=== PATIENT | male | born 1990 | race Caucasian/White ===

== ENCOUNTER 2020-04-14 12:47 | Outpatient (CLI) | payer OTHER, SELFPAY ==
--- NOTE | ~2020-04-14 | CT_ITS ---
EXAMINATION: CT abdomen pelvis wo con DATE: 04/14/2020 13:12 INDICATION: Flank pain and painful urination TECHNIQUE: Computed tomography (CT) of the abdomen and pelvis was performed without intravenous contr ast. The dose-length product (DLP) was 283.76 mGy-cm. Automated exposure control and iterative recons truction technique were employed. COMPARISON: 05/23/2007 FINDINGS: The lung bases are clear. The heart size is normal. The liver, spleen, pancreas, gallbladde r, and adrenal glands are normal. The kidneys are unremarkable. No stones are identified in the kidne ys, ureters, or bladder. There is no hydronephrosis or hydroureter. No pathologically enlarged abdomi nal or pelvic lymph nodes are identified. There is no free intraperitoneal gas or evidence of bowel o bstruction. The appendix is normal. IMPRESSION: 1. No CT correlate for the patient's symptoms. Reviewed, dictated and finalized at location A. [facility]
== END 2020-04-14 12:48 | disposition home or self-care (01) ==
LOC: CHSIMG 12:49
PROVIDERS: PCP Family Medicine; Visit Provider Physician Assistant
DX: R10.9 Unspecified abdominal pain (principal)
CPT/HCPCS: 74176

== ENCOUNTER 2020-06-21 03:07 | Emergency (ER) | payer OTHER, SELFPAY ==
[2020-06-21 03:36] VITALS: BP 114/81; PULSE 85; RESP 20; TEMP 36.8; O2SAT 98
[2020-06-21] MEDS: ONDANSETRON INJ 4 MG/2 ML VIAL IV PUSH (03:50)
[2020-06-21] MEDS: SODIUM CHLORIDE 0.9% IV 1,000 ML 999 ML IV CONT (03:51)
[2020-06-21 03:58] LABS: Basophils Absolute Auto 0.03 K/mm3 (0.00-0.10); Basophils Percent Auto 0.3 % (0.0-1.0); Eosinophils Absolute Auto 0.09 K/mm3 (0.02-0.50); Eosinophils Percent Auto 0.9 % (1.0-6.0); Hematocrit 49.6 % (40.0-54.0); Hemoglobin 16.4 g/dL (14.0-18.0); Immature Granulocyte Absolute 0.02 K/mm3 (0.00-0.00); Immature Granulocyte Percent A 0.2 % (0.0-0.0); Lymphocytes Absolute Auto 0.28 K/mm3 (1.10-4.50); Lymphocytes Percent Auto 2.7 % (18.0-42.0); Mean Corpuscular HGB Conc 33.1 g/dL (32.0-36.0); Mean Corpuscular Hemoglobin 30.7 pg (27.0-31.0); Mean Corpuscular Volume 92.7 fL (78.0-102.0); Mean Platelet Volume 9.5 fl (8.7-11.0); Monocytes Absolute Auto 0.74 K/mm3 (0.10-0.90); Monocytes Percent Auto 7.2 % (2.0-11.0); Neutrophils Absolute Auto 9.1 K/mm3 (1.7-7.2); Neutrophils Percent Auto 88.7 % (50.0-70.0); Platelet Count Result 241 K/mm3 (150-420); Red Blood Count 5.35 M/mm3 (4.70-6.10); Red Cell Distribution Width 12.2 % (11.6-14.4); White Blood Count 10.2 K/mm3 (4.8-10.8)
[2020-06-21 04:09] LABS: Alanine Aminotransferase 32 U/L (16-63); Albumin Level 4.6 g/dL (3.4-5.0); Alkaline Phosphatase 87 U/L (46-116); Anion Gap 13 mmol/L (8-16); Aspartate Amino Transferase 16 U/L (15-37); Bilirubin,Total 0.8 mg/dL (0.00-1.00); Blood Urea Nitrogen 25 mg/dL (7-18); Calcium 9.5 mg/dL (8.5-10.1); Carbon Dioxide 26 mmol/L (21-32); Chloride 102 mmol/L (98-108); Estimated CRCL calculation 82 ml/min; Estimated Glomerular Filt Rate > 60; Glucose 134 mg/dL (70-99); Osmolality Calculated 298 mOsm/kg (285-295); Potassium 3.6 mmol/L (3.5-5.1); Sodium 141 mmol/L (136-145); Total Protein 8.5 g/dL (6.4-8.2)
--- NOTE | 2020-06-21 04:14 | ED.NAVMDI ---
HPI - Nausea/Vomiting/Diarrhea General Chief complaint: Nausea/Vomiting/Diarrhea Stated complaint: Vomiting and Diarrhea Source: patient and family Mode of arrival: ambulatory Limitations: no limitations History of Present Illness HPI Narrative: this is a 30-year-old male presents from home with his mother after earlier this this evening he started developing crampy abdominal pain with nausea vomiting and loose watery stools unknown cause but his father have similar episode a few days prior is having crampy abdominal pain no fever chills no chest pain no palpitations. MD elicited complaint: nausea, vomiting, diarrhea and abdominal pain Onset (ago): hour(s) Description of vomiting: food contents Description of diarrhea: semi-solid Associated nausea: Yes Associated abdominal pain: Yes Location of pain: other ( crampy abdominal pain) Pain consistency: intermittent Related Data Home Medications Medication Instructions Recorded Confirmed methimazole 2.5 mg PO DAILY 06/21/20 06/21/20 omeprazole 40 mg PO DAILY 06/21/20 06/21/20 propranolol 120 mg PO BID 06/21/20 06/21/20 Allergies Allergy/AdvReac Type Severity Reaction Status Date / Time amitriptyline Allergy Unknown Verified 06/21/20 03:36 Review of Systems Review of Systems: All systems reviewed & are unremarkable except as noted in HPI and below PMFSH Past Medical History Medical History Hyperthyroidism Exam Const: General: no acute distress and alert Orientation/consciousness: patient oriented x3 HENMT: Head: normal to inspection Eyes: Pupils: Equal, round and reactive pupils present EOM: EOMs intact bilaterally Direct Ophthalmoscopy: no photophobia Chest: Chest palpation & inspection: normal inspection of the chest Resp: Effort & Inspection: normal respiratory effort Auscultation: clear to auscultation bilaterally Cardio: Rhythm: regular rhythm GI: GI Palp: Yes Soft to palpation Back/Spine/Pelvis: Back: no CVA tenderness Skin: General skin exam: normal color Rashes: no rashes Neuro: General: patient oriented x3, moves all extremities and no meningeal signs Extrem: General: normal to inspection and no pedal edema Psych: Appearance: grossly normal Mental Status: mental status grossly normal Affect: normal affect Thought content: Yes Normal thought content present Course Course Emergency Course: nausea and vomiting had eased up after he received IV Zofran and was given IV fluids patient is more comfortable, labs reviewed with patient and his mother. Vital Signs Vital signs: Vital Signs Temperature 36.8 C 06/21/20 03:36 Pulse Rate 85 06/21/20 03:36 Respiratory Rate 20 06/21/20 03:36 Blood Pressure 114/81 06/21/20 03:36 Pulse Oximetry 98 06/21/20 03:36 Temperature 36.8 C 06/21/20 03:36 Pulse Rate 85 06/21/20 03:36 Respiratory Rate 20 06/21/20 03:36 Blood Pressure 114/81 06/21/20 03:36 Pulse Oximetry 98 06/21/20 03:36 MDM - Nausea/Vomiting/Diarrhea Lab Data Result diagrams: 06/21/20 03:50 06/21/20 03:50 Labs: Lab Results 06/21/20 06/21/20 Range/Units 03:50 03:50 WBC 10.2 (4.8-10.8) K/mm3 RBC 5.35 (4.70-6.10) M/mm3 Hgb 16.4 (14.0-18.0) g/dL Hct 49.6 (40.0-54.0) % MCV 92.7 (78.0-102.0) fL MCH 30.7 (27.0-31.0) pg MCHC 33.1 (32.0-36.0) g/dL RDW 12.2 (11.6-14.4) % Plt Count 241 (150-420) K/mm3 MPV 9.5 (8.7-11.0) fl Immature Gran % (Auto) 0.2 H (0.0-0.0) % Neut % (Auto) 88.7 H (50.0-70.0) % Lymph % (Auto) 2.7 L (18.0-42.0) % [place] % (Auto) 7.2 (2.0-11.0) % Eos % (Auto) 0.9 L (1.0-6.0) % Baso % (Auto) 0.3 (0.0-1.0) % Lymph # (Auto) 0.28 L (1.10-4.50) K/mm3 [place] # (Auto) 0.74 (0.10-0.90) K/mm3 Eos # (Auto) 0.09 (0.02-0.50) K/mm3 Baso # (Auto) 0.03 (0.00-0.10) K/mm3 Abs Immat Gran (auto) 0.02 H (0.00-0.00) K/mm3 Absolute Neut
[2020-06-21 04:29] VITALS: BP 125/84; PULSE 81; RESP 18; TEMP 36.6; O2SAT 98
== END 2020-06-21 04:34 | disposition home or self-care (01) ==
PROVIDERS: Emergency Provider Emergency Medicine; PCP Family Medicine
DX: K52.9 Noninfective gastroenteritis and colitis, unspecified (principal)
CPT/HCPCS: 36415; 80053; 85025; 96361; 96374; 99283; 99284; J2405; J7030

== ENCOUNTER 2020-09-13 13:44 | Outpatient (CLI) | payer OTHER, SELFPAY ==
--- NOTE | ~2020-09-13 | US_ITS ---
EXAMINATION: US thyroid DATE: 09/13/2020 14:04 INDICATION: Goiter. TECHNIQUE: Multiple ultrasound images of the thyroid were obtained. COMPARISON: Ultrasound 09/04/2016, 09/09/15 FINDINGS: The right thyroid lobe measures 5.5 x 1.6 x 1.6 cm. The left thyroid lobe measures 6.5 x 1.8 x 1.8 c m. In the right thyroid lobe, there is a 12 mm solid, hypoechoic, wgnsy-kuwa-rtok nodule with ill-de fined margin without echogenic foci (TI-RADS TR4). In the thyroid isthmus, there is an 8 mm solid, hy poechoic, jyhji-liqr-zmkk nodule with ill-defined margin without echogenic foci (TR4). In the left th yroid lobe, there is an 8 mm solid, hypoechoic, gxvso-ofeb-eoxr nodule with ill-defined margin withou t echogenic foci (TR4). IMPRESSION: 1. Thyroid nodules, stable from 09/09/2015, likely benign. No follow-up is needed. Reviewed, dictated and finalized at location B. IMPRESSION: 1. Thyroid nodules, stable from 09/09/2015, likely benign. No follow-up is neede ac
== END 2020-09-13 13:45 | disposition home or self-care (01) ==
LOC: CHSIMG 13:45
PROVIDERS: PCP Physician Assistant
DX: E04.2 Nontoxic multinodular goiter (principal)
CPT/HCPCS: 76536

== ENCOUNTER 2021-07-08 12:42 | Outpatient (CLI) | payer OTHER, SELFPAY ==
--- NOTE | ~2021-07-08 | XR_ITS ---
XR lumbar spine 2-3V DATE: 07/08/2021 12:59 INDICATION: Chronic back pain, radiating to right lower extremity, worse the past week. TECHNIQUE: AP, lateral, coned lateral lumbosacral views COMPARISON: 04/09/2020 lumbar spine FINDINGS: There is mild levoscoliosis of the thoracolumbar spine. Normal alignment of the lumbar spine. No fracture or bone destruction or spondylolisthesis. The included lower thoracic and lumbar pedicles are intact. Lumbosacral and lumbar interspaces are relatively well preserved. The sacroiliac joints are normal. IMPRESSION: Mild scoliosis; otherwise no significant abnormality Reviewed, dictated and finalized at location A.
== END 2021-07-08 12:43 | disposition home or self-care (01) ==
LOC: CHSIMG 12:43
PROVIDERS: PCP Family Medicine; Visit Provider Physician Assistant
DX: M54.16 Radiculopathy, lumbar region (principal)
CPT/HCPCS: 72100

== ENCOUNTER 2021-12-28 13:23 | Outpatient (CLI) | payer OTHER, SELFPAY ==
[2021-12-28 14:01] LABS: Alanine Aminotransferase 29 U/L (16-63); Albumin Level 4.3 g/dL (3.4-5.0); Alkaline Phosphatase 79 U/L (46-116); Anion Gap 8 mmol/L (8-16); Aspartate Amino Transferase 17 U/L (15-37); Bilirubin,Total 0.4 mg/dL (0.00-1.00); Blood Urea Nitrogen 17 mg/dL (7-18); Calcium 9.8 mg/dL (8.5-10.1); Carbon Dioxide 29 mmol/L (21-32); Chloride 104 mmol/L (98-108); Cholesterol 199 mg/dL (0-200); Estimated Glomerular Filt Rate > 60; Glucose 108 mg/dL (70-99); HDL Direct 50 mg/dL (40-60); LDL Cholesterol Calculated 121 mg/dL (<130); Osmolality Calculated 294 mOsm/kg (285-295); Potassium 5.4 mmol/L (3.5-5.1); Sodium 141 mmol/L (136-145); Thyroid Stimulating Hormone 0.12 uIU/mL (0.36-3.74); Total Protein 8.1 g/dL (6.4-8.2); Triglycerides 138 mg/dL (0-150)
[2021-12-28 14:11] LABS: Hemoglobin A1C 5.5 % (<5.7)
== END 2021-12-28 13:24 | disposition home or self-care (01) ==
LOC: CHSLAB 13:25
PROVIDERS: PCP Family Medicine; Visit Provider Physician Assistant
DX: R73.01 Impaired fasting glucose (principal); E05.00 Thyrotoxicosis with diffuse goiter without thyrotoxic crisis or storm
CPT/HCPCS: 36415; 80053; 80061; 83036; 84443

== ENCOUNTER 2022-01-20 11:23 | Outpatient (CLI) | payer OTHER, SELFPAY ==
[2022-01-20 12:07] LABS: Potassium 4.5 mmol/L (3.5-5.1); Thyroid Stimulating Hormone 0.21 uIU/mL (0.36-3.74)
[2022-01-23 15:42] LABS: Total Triiodothyronine (T3) 97.7 ng/dL (76-181)
== END 2022-01-20 11:24 | disposition home or self-care (01) ==
LOC: CHSLAB 11:25
PROVIDERS: PCP Physician Assistant; Visit Provider Physician Assistant
DX: E87.5 Hyperkalemia (principal)
CPT/HCPCS: 36415; 84132; 84439; 84443; 84480

== ENCOUNTER 2022-01-24 12:46 | Outpatient (CLI) | payer OTHER, SELFPAY ==
--- NOTE | 2022-01-27 10:12 | WPDHOLTEREM ---
Holter/Event Monitor Holter/Event Monitor Date of procedure: 01/24/22 Holter/Event Procedure: 48 Hr Holter Monitor Indications: Palpitations Conclusion: 1. 48 hour holter monitor on 01/24/22. 2. Underlying rhythm is sinus rhythm. HR range 39-120 bpm; average HR 73 bpm. HR at 39 bpm was at 07:40. 3. There are 1,272 premature supraventricular complexes, 10 supraventricular couplets and 16 supraventricular trigeminy. No supraventricular tachycardia. 4. There is 1 premature ventricular complex. No ventricular tachycardia. 5. No sinoatrial or atrioventricular blocks. No significant pauses greater than 2 seconds. 6. No symptoms available for correlation.
== END 2022-01-24 12:47 | disposition home or self-care (01) ==
PROVIDERS: PCP Physician Assistant; Visit Provider Physician Assistant
DX: R00.2 Palpitations (principal)
CPT/HCPCS: 93225; 93226

== ENCOUNTER 2022-02-19 21:55 | Emergency (ER) | payer OTHER, SELFPAY ==
[2022-02-19 22:20] VITALS: BP 126/78; PULSE 68; RESP 20; TEMP 36.9; O2SAT 98
[2022-02-19] MEDS: AZITHROMYCIN 250 MG TABLET 500 MG PO (22:53)
[2022-02-19] MEDS: ONDANSETRON HCL ODT 4 MG TABLET PO (22:53)
--- NOTE | 2022-02-19 23:10 | ED.GENADULT ---
HPI - General Adult General Chief complaint: Upper Respiratory Infection Stated complaint: sore throat /vomiting Time Seen by Provider: 02/19/22 22:35 Source: patient Mode of arrival: ambulatory Limitations: no limitations History of Present Illness HPI narrative: Patient is 31-year-old white male brought in by his mother complaining of a sore throat that started today he has had a little bit of nausea vomiting today says usually this goes into a bronchitis any is treated with a Z-Lobo. He took 2 old amoxicillin tablets today to try to defend this illness off. He has had COVID in the distant past. Denies any cough fever problems eating or drinking voiding or stooling or Rash or itching Or muscle aches. Related Data Home Medications Medication Instructions Recorded Confirmed methimazole 5 mg tablet 2.5 mg PO DAILY 06/21/20 02/19/22 omeprazole 40 mg capsule,delayed 40 mg PO DAILY 06/21/20 02/19/22 release propranolol 120 mg capsule,24 120 mg PO BID 06/21/20 02/19/22 hr,extended release Allergies Allergy/AdvReac Type Severity Reaction Status Date / Time amitriptyline Allergy Unknown Verified 06/21/20 03:36 Review of Systems Review of Systems: All systems reviewed & are unremarkable except as noted in HPI and below Constitutional: Constitutional: Reports as per HPI, Denies fatigue, Denies fever(s) and Denies weakness Eyes: Eyes: Reports no additional eye complaints ENT: Reports system reviewed and no additional complaints, except as documented, Denies nasal congestion and Reports sore throat Cardiovascular: Cardiovascular: Reports no additional cardiovascular complaints and Denies chest pain Respiratory: Respiratory: Reports no additional respiratory complaints, Denies chest congestion, Denies cough and Denies dyspnea Gastrointestinal: Gastrointestinal: Reports no additional gastrointestinal complaints, Denies constipation, Denies diarrhea, Reports nausea and Reports vomiting Genitourinary: Genitourinary: Reports no additional male genitourinary complaints, Reports as per HPI, Denies dysuria, Denies urinary frequency and Denies urinary incontinence Musculoskeletal: Musculoskeletal: Reports no additional musculoskeletal complaints PMFSH Past Medical History Medical History Hyperthyroidism Exam Const: General: alert and ill appearing Nutritional Appearance: well nourished Orientation/consciousness: patient oriented x3 Limitations: no limitations Other: Patient is a white male who appears ill. Ears TMs are normal oropharynx is clear with small amount of erythema is posterior pharynx without any exudates neck is supple without lymphadenopathy eyes conjunctiva pink sclera nonicteric. Lungs are clear. Heart is regular rate and rhythm without murmurs gallops or rubs. Abdomen is soft and nontender without hepatosplenomegaly. Extremities no cyanosis clubbing or edema neurologically is alert and oriented x4. Course Course Emergency Course: Patient was given azithromycin 500 mg and Zofran 4 mg ODT. Vital Signs Vital signs: Vital Signs Temperature 36.9 C 02/19/22 22:20 Pulse Rate 68 02/19/22 22:20 Respiratory Rate 20 02/19/22 22:20 Blood Pressure 126/78 02/19/22 22:20 Pulse Oximetry 98 02/19/22 22:20 Oxygen Delivery Room Air 02/19/22 22:20 Temperature 36.9 C 02/19/22 22:20 Pulse Rate 68 02/19/22 22:20 Respiratory Rate 20 02/19/22 22:20 Blood Pressure 126/78 02/19/22 22:20 Pulse Oximetry 98 02/19/22 22:20 Oxygen Delivery Room Air 02/19/22 22:20 Medical Decision Making Vital Signs Vital Signs: Vital Signs Temperature 36.9 C 02/19/22 22:20 Pulse Rate 68 02/19/22 22:20 Respiratory Rate 20 02/19/22 22:20 Blood Pressure 126/78 02/19/22 22:20 Pulse Oximetry 98 02/19/22 22:20 Oxygen Delivery Room Air 02/19/22 22:20 Temperature 36.9 C 02/19/22 22:20 Pulse Rate 6
[2022-02-19 23:16] LABS: Strep Group A RT-PCR Not Detected (Negative)
[2022-02-19 23:27] LABS: Influenza A QL RT-PCR Negative (Negative); Influenza B QL RT-PCR Negative (Negative)
[2022-02-19 23:31] VITALS: BP 124/70; PULSE 72; RESP 18; TEMP 37.2; O2SAT 97
[2022-02-19 23:36] LABS: SARS-CoV-2 RNA PCR Negative (Negative)
== END 2022-02-19 23:40 | disposition home or self-care (01) ==
PROVIDERS: Emergency Provider Emergency Medicine; PCP Physician Assistant
DX: J02.9 Acute pharyngitis, unspecified (principal); Z20.822 Contact with and (suspected) exposure to COVID-19
CPT/HCPCS: 87502; 87651; 99283; A9270; U0003; U0005

== ENCOUNTER 2022-07-25 13:18 | Outpatient (RCR) | payer OTHER, SELFPAY ==
--- NOTE | 2022-07-25 14:01 | PTOPEVAL1 ---
Assessment and note entered by JT File, PT Evaluation Information Assessment Status Evaluation Diagnosis lumbago Onset 07/13/22 Subjective Information patient reports he has no known injury, but has been having pain most recently for 2 months. he reports he has a lot of discomfort and nervous system type pain. he reports this is a falre up of pain that he has had in the past. he reports he has been trying to stay aware of his posture to correct this pain, but nothing has been helping. he reports he has also noticed some weakness in the L arm slightly compared to the R arm. he reports no NTB in the L arm. he reports it feels like he has been lifting weights but he hasnt. he reports no NTB in the legs. he reports majority of his pain is in the lower back. he reports he did have xrays showing some bulged discs. Reported Pain Level Pain Score 7: Self Report Assessment PT Clinical Summary mr. finley presents to skilled PT services today for evaluation of lower back pain. he presents this date with signs and symptoms of core instability. however, he also presents with L program clerk strength weakness but no other L UE neuro symptoms. he would benefit from continued skilled PT to address his core weakness, proximal LE weakness, and pain to return to his prior level functional activity performance and quality of life. Plan of Care Interventions Electrical Stimulation,Hot Pack/Cold Pack,Manual Therapy,Neuro Re-education,Patient/Caregiver Educati,Therapeutic Activities,Therapeutic Exercise PT Services Indicated Yes Treatment Frequency and 2x weekly for 10 visits Duration These treatments will address the objective and functional deficits as defined above. The patient will be advanced safely and appropriately in order for the patient to progress towards his/her prior level of function. Additional exercises will be introduced and as well as a comprehensive home exercise program upon discharge, if needed, ?to ensure carryover of functional gains achieved in the clinic. This treatment plan has been reviewed and agreement upon by the patient.
== END 2022-07-25 17:59 | disposition home or self-care (01) ==
LOC: CHSPT 13:18
PROVIDERS: PCP Family Medicine; Visit Provider Family Medicine
DX: M54.9 Dorsalgia, unspecified (principal)
CPT/HCPCS: 97014; 97110; 97161; G0283